=== PATIENT | male | born 1970 | race Caucasian/White ===

== ENCOUNTER 2016-12-08 23:40 | Emergency (ER) | payer BC ==
[~2016-12-08 23:40] MED LIST: ANTIVERT PO; DICLOFENAC PO; NO MEDICATIONS; ZOFRAN ODT4 MG/UDTAB PO
== END 2016-12-09 00:29 | disposition home or self-care (01) ==
LOC: SED 23:40
DX: R03.0 Elevated blood-pressure reading, without diagnosis of hypertension (principal); F41.9 Anxiety disorder, unspecified
CPT/HCPCS: 99283